=== PATIENT | female | born 1990 | race Caucasian/White ===

== ENCOUNTER → 2018-03-31 | Outpatient (CLI) | payer BC ==
--- NOTE | 2018-03-31 17:40 | US ---
EXAMINATION TYPE: US transvaginal DATE OF EXAM: 03/31/2018 COMPARISON: NONE CLINICAL HISTORY: N92.1 Excessive/frequent menstration w/irregular c. Heavy, painful menses, lasting longer than 7 days. Cramping TECHNIQUE: Transvaginal (TV). Date of LMP: 03/08/18 EXAM MEASUREMENTS: Uterus: 7.7 x 2.8 x 5.6 cm Endometrial Stripe: Right = 0.5cm, left = 0.5cm Right Ovary: 2.5 x 1.2 x 1.2 cm Left Ovary: 3.4 x 1.9 x 1.5 cm 1. Uterus: Anteverted appears bicornuate 2. Endometrium: right and left identified 3. Right Ovary: appears wnl as visualized 4. Left Ovary: appears wnl as visualized 5. Bilateral Adnexa: wnl 6. Posterior cul-de-sac: wnl IMPRESSION: Bicornuate uterus. Otherwise negative exam. Normal endometrium.
== END | disposition home or self-care (01) ==
LOC: RADUSWWP 16:58
PROVIDERS: ATTEND Family Medicine
DX: Q51.3 Bicornate uterus (principal)
CPT/HCPCS: 76830

== ENCOUNTER → 2023-09-22 | Outpatient (CLI) | payer BC, OTHER ==
--- NOTE | 2023-09-23 07:50 | US ---
EXAMINATION TYPE: US transvaginal DATE OF EXAM: 09/22/2023 COMPARISON: US CLINICAL INDICATION: Female, 32 years old with history of N93.9 ABNORMAL UTERINE AND VAGINAL BLEEDING , UNSPE; Pt states abnormal vaginal bleeding in the month of August TECHNIQUE: Transvaginal (TV). Transvaginal sonographic images of the pelvis were acquired. Date of LMP: Late August EXAM MEASUREMENTS: Uterus: 8.5 x 3.0 x 4.6 cm Endometrial Stripe: Right "Horn"= 0.9 cm, Left "Horn"= 1.2 cm Right Ovary: 3.5 x 1.8 x 2.8 cm Left Ovary: 3.8 x 1.9 x 3.1 cm 1. Uterus: Anteverted Appears Bicornuate as visualized on prior ultrasound in 2017 2. Endometrium: ?Left "Horn" thickened 3. Right Ovary: wnl, follicles 4. Left Ovary: wnl, follicles 5. Bilateral Adnexa: wnl 6. Posterior cul-de-sac: wnl IMPRESSION: Bicornuate uterus is again noted with thickened endometrial horn on the left.
== END | disposition home or self-care (01) ==
LOC: RADUSWWP 15:16
PROVIDERS: ATTEND Family Medicine
DX: Q51.3 Bicornate uterus (principal); N93.9 Abnormal uterine and vaginal bleeding, unspecified; R93.89 Abnormal findings on diagnostic imaging of other specified body structures
CPT/HCPCS: 76830

== ENCOUNTER → 2023-12-19 | Outpatient (CLI) | payer BC, OTHER ==
[2023-12-19 16:04] LABS: Carbon Dioxide 24.6 mmol/L (21.6-31.8); Chloride 104 mmol/L (96-109); Glucose 100 mg/dL (70-110); Potassium 4.4 mmol/L (3.5-5.5); Sodium 141 mmol/L (135-145)
[2023-12-19 16:21] LABS: Basophils # (A) 0.07 X 10*3/uL (0.00-0.10); Basophils % (A) 1.5 %; Eosinophils # (A) 0.15 X 10*3/uL (0.04-0.35); Eosinophils % (A) 3.2 %; HCT 41.1 % (37.2-46.3); HGB 13.2 g/dL (12.0-15.0); Lymphocytes # (A) 1.56 X 10*3/uL (0.90-5.00); Lymphocytes % (A) 33.3 %; MCH 31.7 pg (27.0-32.0); MCHC 32.1 g/dL (32.0-37.0); MCV 98.8 FL (80.0-97.0); Mean Platelet Volume 10.9 FL (9.5-12.2); Monocytes % (A) 8.5 %; NRBC Per 100 WBC 0 X 10*3/uL (0.00-0.01); Neutrophils # (A) 2.47 X 10*3/uL (1.80-7.70); Neutrophils % (A) 52.9 %; Platelet Count 207 X 10*3/uL (140-440); RBC 4.16 X 10*6/uL (4.10-5.20); RDW 13.2 % (11.5-14.5); WBC 4.68 X 10*3/uL (4.50-10.00)
== END | disposition home or self-care (01) ==
LOC: LABWHC1 07:42
PROVIDERS: ATTEND Obstetrics & Gynecology Obstetrics
DX: Z01.812 Encounter for preprocedural laboratory examination (principal); N92.0 Excessive and frequent menstruation with regular cycle; N93.8 Other specified abnormal uterine and vaginal bleeding; Q51.3 Bicornate uterus
CPT/HCPCS: 80051; 82565; 82947; 84520; 85025; 86850; 86900; 86901; 87086

== ENCOUNTER 2023-12-29 08:11 | Day surgery (SDC) | payer BC, OTHER ==
[2023-12-27 08:32] VITALS: BMI 24.2
[2023-12-29] MEDS ORDERED: HYDROmorphone 0.5 MG/0.5 ML SYRINGE IVP PRN (08:16)
[2023-12-29] MEDS: IV FLUID CONTINUATION 1,000 ML IV ONE (08:39)
[2023-12-29] MEDS: DEXAMETHASONE SOD PHOSPHATE 4 MG/ML 1 ML VIAL IV ONE (08:58)
[2023-12-29] MEDS: ONDANSETRON 4 MG/2 ML VIAL IVP ONE (08:58)
[2023-12-29] MEDS: LACTATED RINGERS 1,000 ML IV SCH ×2 (08:58→20:54)
[2023-12-29] MEDS: MIDAZOLAM 2 MG/2 ML VIAL IVP ONE (09:12)
[2023-12-29] MEDS ORDERED: LIDOCAINE 1% INJ 10MG/ML (20 ML MDV) ONE (10:05)
[2023-12-29] MEDS ORDERED: MIDAZOLAM 2 MG/2 ML VIAL ONE (10:05)
[2023-12-29] MEDS ORDERED: PROPOFOL 10 MG/ML 20 ML VIAL IV ONE (10:05)
[2023-12-29] MEDS ORDERED: SUCCINYLCHOLINE CHLORIDE 200 MG/10 ML VIAL IV ONE (10:05)
[2023-12-29] MEDS ORDERED: GLYCOPYRROLATE 0.2 MG/ML 2 ML VIAL ONE (10:05)
[2023-12-29] MEDS ORDERED: MORPHINE SULFATE (PF) 0.3 MG/0.3 ML SYR ONE (10:05)
[2023-12-29] MEDS ORDERED: ROCURONIUM 10 MG/ML (5 ML VIAL) IV ONE (10:05)
[2023-12-29] MEDS ORDERED: NEOSTIGMINE 1 MG/ML 10 ML VIAL ONE (10:05)
[2023-12-29] MEDS ORDERED: fentaNYL (PF) 50 MCG/ML 2 ML AMP ONE (10:05)
[2023-12-29] MEDS: LACTATED RINGERS 1,000 ML IV ONE ×2 (11:11→11:14)
[2023-12-29] MEDS: BUPIVACAINE (PF) 0.25% 30 ML VIAL SQ ONE (11:52)
[2023-12-29] MEDS ORDERED: ONDANSETRON 4 MG/2 ML VIAL IVP PRN (11:54)
[2023-12-29] MEDS ORDERED: Acetaminophen-Codeine 300-30mg TAB PO PRN ×2 (11:54)
[2023-12-29] MEDS ORDERED: SIMETHICONE 80 MG CHEWABLE PO PRN (11:54)
--- NOTE | 2023-12-29 12:20 | P.OP ---
Date of Procedure: 12/29/23 Preoperative Diagnosis: Heavy menstrual bleeding, dysmenorrhea, uterine anomaly Postoperative Diagnosis: Same Procedure(s) Performed: Robotic assisted vaginal hysterectomy, bilateral salpingectomy, diagnostic cystoscopy Anesthesia: CAIO Surgeon: Katie Berman [employer] #1: Arden Laughlin Estimated Blood Loss (ml): 50 Urine output (ml): 250 Pathology: other (Uterus bilateral fallopian tubes, cervix) Condition: stable Disposition: PACU Indications for Procedure: Heavy menstrual bleeding, known uterine anomaly with unicornuate uterus Operative Findings: Globular uterus, normal ovaries bilaterally. Endometriosis implants noted on the left uterosacral ligament. On cystoscopy after placement of the Veloz clear fluid initially was noted,slightly afterwards enma red blood was noted in the urine catheter, it did clear through the procedure. On cystoscopy an intact cavity was noted abdominally and on cystoscopy. Both ureteral orifices were noted to be spilling clear yellow urine. Description of Procedure: Patient was taken back to the operating suite and general anesthesia was obtained without difficulty by the anesthesia department. She was then prepped and draped in a normal sterile fashion. Veloz catheter was placed under sterile technique, as stated above initially urine was noted to be clear in nature as weighted speculum was placed in the posterior vaginal vault, blood was noted within the Veloz catheter, this cleared slowly. Anterior lip of the cervix was visualized grasped with a single-tooth tenaculum and the endocervical canal was then serially dilated. A Interfolio uterine manipulator was advanced into the uterus as a means to manipulate the uterus throughout the procedure. Cervical cap waas then placed snugly against the cervix and all instruments were removed from the patient's vaginal vault. Attention was then turned to the patient's abdomen where approximately 2 fingerbreadths above the umbilicus a small skin incision is made. Through this incision the Veress needle was placed. Once the Veress needle was deemed to be in the appropriate position with a drop of CO2 pressure with the insufflation of CO2 gas, CO2 insufflation was allowed to occur. At this time the additional port sites were placed at 10 cm lateral and 3 cm inferior to the midline port these are operative ports placed under direct visualization. In the left upper quadrant a 12 mm trocar and sleeve was placed under direct visualization. At this time the da Nav robot was docked in the usual fashion and the operative arms are now placed. In the right operative arm the monopolar scissors is placed, and the left operative arm the bipolar forceps is placed. Attention was then turned to the patient's left fallopian tube which was elevated the mesosalpinx was coagulated and transected to the level of the utero-ovarian ligament which was coagulated distally proximally divided. The round ligament was coagulated distally and proximally divided. The bladder flap from the left was then created using sharp and blunt dissection. The ascending branch of the uterine artery was visualized coagulated and transected. The right fallopian tube was then elevated the mesosalpinx was coagulated and transected to the level of the utero-ovarian ligament. The utero-ovarian ligament was coagulated distally and proximally and divided. The round ligament was visualized from the left coagulated and transected. The bladder flap from the right was then created using sharp and blunt dissection. The ascending branch of the uterine artery was visualized coagulated, and transected. At this point the only remaining attachment was a vaginal attachment therefore colpotomy incision was made in a circumferential fashion. The uterus and bilateral fallopian tubes were delivered through the vaginal opening. The pelvis to copiously irrigated and the vaginal cuff was closed with 0 Vicryl in [id number] fashion x 5. After closure was complete a small amount of oozing was noted therefore Surgicel powder was placed along the vaginal cuff. At this time the Veloz catheter was removed and cystoscope was performed. The cystoscope was placed through the urethra and toward the bladder bladder bubble was appreciated complete survey revealed intact mucosa a small clot was appreciated at the level of the urethral junction. Both ureteral orifices were noted to be spilling clear yellow urine. The cystoscope was then removed and Veloz catheter was replaced. Attention was turned to the patient's abdomen where the skin incisions were closed with 4-0 Vicryl in a subcuticular fashion. Steri-Strips and sterile dressings were applied. All counts were noted be correct x 2. On inspection of the Veloz catheter after cystoscopy, cystoscope fluid/urine was noted to be clear no further bleeding was appreciated., All counts were to be correct x 2. Patient tolerated procedure well and was taken to recovery awake in stable condition.
--- NOTE | 2023-12-29 12:57 | P.ANPRN ---
Procedure Note - Anesthesia - Epidural/Spinal Spinal Time Out Performed: Yes Date of Procedure: 12/29/23 Location of Patient: PreOp Indication: Acute Post-Operative Pain, Requested by Surgeon Sedation Type: Sedate with meaningful contact maintained Preparation: Sterile Prep Position: Sitting Catheter: None Needle Guage: 25 Narrative: After the informed consent was obtained and all the questions answered, Patient was positioned in sitting posture. The back was cleaned and draped after palpating the L3-L4 interspace. 3 mL of 1% lidocaine infiltrated into the aforementioned space. A 25-gauge Whittacre needle was introduced into the space and a clear flow of CSF was obtained. No blood was aspirated. 300 g of Duramorph and 25 g fentanyl drawn up with a Filter Needle and injected into the spinal space under aseptic precautions. Needle was withdrawn and the puncture dary with a platelet dressed with Band-Aid. Patient tolerated the procedure very well with no apparent complications noted. Blood Aspirated: No Pain Paresthesia on Injection Noted: No
[2023-12-29] MEDS ORDERED: IBUPROFEN IV 800 MG in SODIUM CHLORIDE 0.9% 250 ML IV ONE (14:30)
[2023-12-29 14:55] VITALS: RESP 16
[2023-12-29] MEDS: IBUPROFEN 600 MG TAB PO PRN (15:20)
[2023-12-29] MEDS: ACETAMINOPHEN IV (For NPO) 1,000 MG in EMPTY BAG 1 BAG IVPB ONE (19:37)
[2023-12-29] MEDS: diphenhydrAMINE 50 MG/ML 1 ML VIAL IVP PRN (19:43)
[2023-12-29] MEDS: SENNOSIDES-DOCUSATE SODIUM 1 EACH TAB PO SCH (20:54)
[2023-12-30] MEDS: IBUPROFEN IV 800 MG in SODIUM CHLORIDE 0.9% 250 ML IV ONE (00:26)
[2023-12-30] MEDS: ACETAMINOPHEN TAB 325 MG TAB PO PRN (03:12)
[2023-12-30 08:14] VITALS: BP 100/61; PULSE 76; TEMP 98.3
[2023-12-30 08:31] LABS: Basophils % (A) 1 %; Eosinophils # (A) 0.1 k/uL (0-0.7); Eosinophils % (A) 1 %; HCT 38.7 % (34.0-46.0); HGB 12.2 gm/dL (11.4-16.0); Lymphocytes # (A) 1.3 k/uL (1.0-4.8); Lymphocytes % (A) 18 %; MCH 30.8 pg (25.0-35.0); MCHC 31.5 g/dL (31.0-37.0); MCV 97.8 fL (80.0-100.0); Mean Platelet Volume 8.3; Monocytes # (A) 0.4 k/uL (0-1.0); Monocytes % (A) 6 %; Neutrophils # (A) 5.3 k/uL (1.3-7.7); Neutrophils % (A) 73 %; Platelet Count 190 k/uL (150-450); RBC 3.96 m/uL (3.80-5.40); RDW 13.3 % (11.5-15.5); WBC 7.3 k/uL (3.8-10.6)
--- NOTE | 2023-12-30 09:14 | P.DS ---
Providers Date of admission: 12/29/2023 Expected date of discharge: 12/30/23 Attending physician: Katie Berman Primary care physician: Juve Knight - Discharge Diagnosis(es) (1) Heavy menstrual bleeding Current Visit: Yes Status: Acute (2) Unicornuate uterus Current Visit: Yes Status: Acute (3) Dysmenorrhea Current Visit: Yes Status: Acute Hospital Course: 33-year-old 0 that presented yesterday to the hospital for scheduled robotic assisted vaginal hysterectomy. Patient has a history of heavy menstrual bleeding, irregular in nature. For full details on this patient please see the dictated history and physical. Patient was taken back to the operative suite where robotic assisted vaginal hysterectomy with bilateral salpingectomy, diagnostic cystoscopy was performed without difficulty. For full details on the procedure please see the operative report. Patient did have some hematuria noted after Veloz catheter was placed. On cystoscopy intact cavity was appreciated and urine did clear after cystoscopy. Bleeding was noted at the urethra upon entering the bladder, on cystoscopy. Patient has done well post operatively. On this postoperative day #1 she is ambulating and voiding without difficulty. She is tolerating a regular diet without nausea or vomiting. She notes scant vaginal bleeding. Incisions are noted to be clean dry and intact. Postoperative appointment has been made already. Discharge instructions are reviewed. Patient Condition at Discharge: Good Plan - Discharge Summary Discharge Rx Participant: No New Discharge Prescriptions: No Action buPROPion HCL [buPROPion HCL XL] 300 mg PO QAM Flibanserin [Addyi] 100 mg PO HS Alg Med 1 dose PO DAILY traZODone HCL [Desyrel] 50 mg PO HS Levothyroxine Sodium [Synthroid] 25 mcg PO QAM Discharge Medication List Alg Med 1 dose PO DAILY 12/27/23 [History] Flibanserin [Addyi] 100 mg PO HS 12/27/23 [History] Levothyroxine Sodium [Synthroid] 25 mcg PO QAM 12/27/23 [History] buPROPion HCL [buPROPion HCL XL] 300 mg PO QAM 12/27/23 [History] traZODone HCL [Desyrel] 50 mg PO HS 12/27/23 [History] Follow up Appointment(s)/Referral(s): Katie Berman DO [Doctor of Osteopathic Medicine] - 01/11/24 11:00 am Patient Instructions/Handouts: Laparoscopic Hysterectomy (GEN), Laparoscopic Hysterectomy (DC) Activity/Diet/Wound Care/Special Instructions: No intercourse, tampons or douching. No heavy lifting greater than a gallon of milk. No driving for two weeks. Call with any fever, shakes or chills, with any pain not alleviated by over the counter meds, or with any quesions or concerns. [id number] ibuprofen 600 mg as needed for pain. This is 3 tablets every 6 hours. Discharge Disposition: HOME SELF-CARE
[2023-12-30] MEDS ORDERED: ACETAMINOPHEN TAB 325 MG TAB PO PRN (11:55)
== END 2023-12-30 09:56 | disposition home or self-care (01) ==
LOC: OR 08:11 → 4FBP 11:51 → OR 12-30 09:56
PROVIDERS: ATTEND Obstetrics & Gynecology Obstetrics
DX: N80.3C2 Endometriosis of the left uterosacral ligament, unspecified depth (principal); N72 Inflammatory disease of cervix uteri; N92.0 Excessive and frequent menstruation with regular cycle; N87.9 Dysplasia of cervix uteri, unspecified; Q51.3 Bicornate uterus; N93.8 Other specified abnormal uterine and vaginal bleeding; G89.18 Other acute postprocedural pain; E07.9 Disorder of thyroid, unspecified; Z87.891 Personal history of nicotine dependence; F41.8 Other specified anxiety disorders; Z79.899 Other long term (current) drug therapy; Z79.890 Hormone replacement therapy
CPT/HCPCS: 58552; 64999; S2900; 81025; 85025; 88307

== ENCOUNTER → 2024-10-19 | Outpatient (CLI) | payer BC, OTHER ==
--- NOTE | 2024-10-19 12:29 | US ---
EXAMINATION TYPE: US kidneys/renal and bladder DATE OF EXAM: 10/19/2024 COMPARISON: NONE CLINICAL INDICATION: Female, 33 years old with history of R94.4 ABN RESULTS KIDNEY FUNCTIONS; TECHNIQUE: Grayscale imaging of the bilateral kidneys and urinary bladder: FINDINGS: EXAM MEASUREMENTS: Right Kidney: 10.4x5.3x4.6 cm Left Kidney: 10.7x6.5x5.0 cm Cuffing Machine Operator notes: slightly limited exam due to rib shadow Right Kidney: slightly increased vascularity Left Kidney: increased vascularity there is slightly heterogeneous appearance may be technical. No hydronephrosis on either side. Bladder: wnl Bilateral Jets seen: Yes IMPRESSION: 1. Slightly heterogeneous appearance to the left kidney may be on a technical basis. Given apparent h yperemia, correlate to exclude possibilities such as underlying infection, LEONELA, renal artery stenosis , or inflammatory conditions of the kidney. 2. No hydronephrosis. [facility], , 10/19/2024 12:27 PM
== END | disposition home or self-care (01) ==
LOC: RADUSWWP 10:01
PROVIDERS: ATTEND Family Medicine
DX: N28.89 Other specified disorders of kidney and ureter (principal); R94.4 Abnormal results of kidney function studies
CPT/HCPCS: 76770

== ENCOUNTER → 2024-11-06 | Outpatient (CLI) | payer BC, OTHER ==
--- NOTE | 2024-11-06 09:51 | US ---
EXAMINATION TYPE: US renal artery duplex complet DATE OF EXAM: 11/06/2024 COMPARISON: 10/19/2024 CLINICAL INDICATION: Female, 34 years old with history of I70.1 ATHEROSCLEROSIS OF RENAL ARTERY; Inco nclusive previous renal exam, Patient does not have HTN or any other signs or symptoms. Abnormal pasha l labs TECHNIQUE: Grayscale, color Doppler and spectral Doppler imaging of the bilateral renal arteries and kidneys. FINDINGS: MEASUREMENTS: RENAL SIZE: Right Kidney: 10.7 x 3.9 x 6.4 cm Left Kidney: 11.0 x 6.8 x 5.7 cm Right Kidney: wnl Left Kidney: wnl Abd Aorta: No AAA visualized RESISTANCE INDEX Right: 0.73 Left: 0.73 RA/AO RATIO (< 3.5 ) Right: 0.8 Left: 0.5 RENAL ARTERY VELOCITY ( < 180 cm/s) Right: 99 Left: 65 Mortgage Advisor Notes: Unremarkable exam Appropriate color Doppler flow and spectral waveforms to the kidneys bilaterally. Grayscale imaging of the kidneys and show no evidence for hydronephrosis or mass. No renal calculi or cysts visualized. IMPRESSION: No evidence for renal artery stenosis bilaterally. [facility], , 11/06/2024 9:48 AM
== END | disposition home or self-care (01) ==
LOC: RADUSWWP 08:55
PROVIDERS: ATTEND Family Medicine
DX: I70.1 Atherosclerosis of renal artery (principal)
CPT/HCPCS: 93975